=== PATIENT | female | born 1995 | race Caucasian/White ===

== ENCOUNTER 2016-11-23 18:13 | Emergency (ER) | payer OTHER ==
[2016-11-23] MEDS ORDERED: AMOXICILLIN TRIHYDRATE 250 MG CAPSULE ONE (19:39)
[2016-11-23] MEDS ORDERED: DEXAMETHASONE SOD PHOS 10 MG/1 ML VIAL ONE (19:39)
[2016-11-23] MEDS ORDERED: IBUPROFEN 800 MG TABLET ONE (19:39)
[2016-11-23] MEDS ORDERED: HYDROCODONE/ACETAMINOPHEN 5/325MG TABLET ONE (19:39)
== END 2016-11-23 19:55 | disposition home or self-care (01) ==
LOC: ED 18:13
DX: H66.92 Otitis media, unspecified, left ear (principal)
CPT/HCPCS: 99283 ×2; A9270 ×3; J1100